=== PATIENT | male | born 1950 | race Caucasian/White ===

== ENCOUNTER 2017-07-11 07:26 | Emergency (ER) | payer MEDICARE ==
[~2017-07-11] VITALS: Ht 177.8 cm; Wt 70.5 kg
[2017-07-11 07:30] VITALS: BP 194/79; PULSE 82; RESP 16; TEMP 97.6; O2SAT 98
[2017-07-11] MEDS ORDERED: PRIL20TA2 (07:40)
[2017-07-11] MEDS ORDERED: PROSTATE PILL (07:40)
[2017-07-11 07:43] VITALS: BP 184/90; PULSE 70; RESP 17; O2SAT 100
--- NOTE | 2017-07-11 07:43 | PD ---
HPI Chief Complaint: Abdominal Pain Time Seen by Provider: 07:40 Travel History International Travel<30 days: No Contact w/Intl Traveler<30days: No Traveled to known affect area: No History of Present Illness HPI one week of n/v/d along with crampy abd pain assoc with bm, pain is nonrad, diffuse, 6/10 and resolves after he completes loose stools. yesterday he ate ice cream sandwich which returned his symptoms.....denies assoc factors such as fever/cough/cp/backpain at this time...denies any alleviating factors, worsened by eating/drinking all: pcn (itchy) pcp pmhx: gerd and prostate problems pshx:denies PFSH Social History Tobacco Use: No Allergies-Medications (Allergen,Severity, Reaction): Coded Allergies: Penicillins (Verified Allergy, Severe, Itching, 07/11/17) Reported Meds & Prescriptions Reported Meds & Active Scripts Active Ultram (Tramadol HCl) 50 Mg Tab 50 Mg PO Q6H PRN Zofran Odt (Ondansetron Odt) 4 Mg Tab 4 Mg SL Q6HR PRN Flagyl (Metronidazole) 500 Mg Tab 500 Mg PO TID 10 Days Cipro (Ciprofloxacin HCl) 500 Mg Tab 500 Mg PO BID 7 Days Reported Prilosec (Omeprazole Magnesium) 20 Mg Tab [Prostate Pill] Review of Systems General / Constitutional: No: Fever Eyes: No: Visual changes HENT: No: Headaches Cardiovascular: No: Chest Pain or Discomfort Respiratory: No: Shortness of Breath Gastrointestinal: Positive: Diarrhea Genitourinary: No: Dysuria Musculoskeletal: No: Pain Skin: No Rash Neurologic: No: Weakness Psychiatric: No: Depression Endocrine: No: Polydipsia Hematologic/Lymphatic: No: Easy Bruising Physical Exam Narrative GENERAL: SKIN: Warm and dry. HEAD: Atraumatic. Normocephalic. EYES: Pupils equal and round. No scleral icterus. No injection or drainage. ENT: No nasal bleeding or discharge. Mucous membranes pink and moist. NECK: Trachea midline. No JVD. CARDIOVASCULAR: Regular rate and rhythm. RESPIRATORY: No accessory muscle use. Clear to auscultation. Breath sounds equal bilaterally. GASTROINTESTINAL: Abdomen soft, non-tender, nondistended. MUSCULOSKELETAL: Extremities without clubbing, cyanosis, or edema. No obvious deformities. NEUROLOGICAL: Awake and alert. No obvious cranial nerve deficits. Motor grossly within normal limits. Five out of 5 muscle strength in the arms and legs. Normal speech. PSYCHIATRIC: Appropriate mood and affect; insight and judgment normal. Data Data Last Documented VS Vital Signs Date Time Temp Pulse Resp B/P (MAP) Pulse Ox O2 Delivery O2 Flow Rate FiO2 07/11/17 09:01 07/11/17 08:54 69 16 100 Room Air 07/11/17 07:30 97.6 Orders Orders Complete Blood Count With Diff (07/11/17 07:47) Comprehensive Metabolic Panel (07/11/17 07:47) Lipase (07/11/17 07:47) Prothrombin Time / Inr (Pt) (07/11/17 07:47) Act Partial Throm Time (Ptt) (07/11/17 07:47) Ct Abd/Pel W/O Iv Contrast (07/11/17 07:47) Iv Access Insert/Monitor (07/11/17 07:47) Ecg Monitoring (07/11/17 07:47) Oximetry (07/11/17 07:47) NPO (07/11/17 07:47) Ondansetron Inj (Zofran Inj) (07/11/17 08:00) Sodium Chlor 0.9% 1000 Ml Inj (Ns 1000 M (07/11/17 07:47) Levofloxacin (Levaquin) (07/11/17 08:45) Metronidazole (Flagyl) (07/11/17 08:45) Sodium Chlor 0.9% 1000 Ml Inj (Ns 1000 M (07/11/17 08:46) Ed Discharge Order (07/11/17 09:03) Labs Laboratory Tests Test 07/11/17 07:50 White Blood Count 12.4 TH/MM3 Red Blood Count 4.51 MIL/MM3 Hemoglobin 13.7 GM/DL Hematocrit 39.9 % Mean Corpuscular Volume 88.6 FL Mean Corpuscular Hemoglobin 30.5 PG Mean Corpuscular Hemoglobin Concent 34.4 % Red Cell Distribution Width 14.4 % Platelet Count 213 TH/MM3 Mean Platelet Volume 9.2 FL Neutrophils (%) (Auto) 80.3 % Lymphocytes (%) (Auto) 10.8 % Monocytes (%) (Auto) 6.6 % Eosinophils (%) (Auto) 1.4 % Basophils (%) (Auto) 0.9 % Neutrophils # (Auto) 10.0 TH/MM3 Lymphocytes # (Auto) 1.3 TH/MM3 Monocytes # (Auto) 0.8 TH/MM3 Eosinophils # (Auto) 0.2 TH/MM3 Basophils # (Auto) 0.1 TH/MM3 CBC Comment DIFF FINAL Differential Comment Prothrombin Time 10.1 SEC Prothromb Time International Ratio 1.0 RATIO Activated Partial Thromboplast Time 25.1 SEC Blood Urea Nitrogen 22 MG/DL Creatinine 2.58 MG/DL Random Glucose 130 MG/DL Total Protein 7.4 GM/DL Albumin 4.1 GM/DL Calcium Level 9.2 MG/DL Alkaline Phosphatase 83 U/L Aspartate Amino Transf (AST/SGOT) 10 U/L Alanine Aminotransferase (ALT/SGPT) 12 U/L Total Bilirubin 0.9 MG/DL Sodium Level 137 MEQ/L Potassium Level 3.6 MEQ/L Chloride Level 109 MEQ/L Carbon Dioxide Level 20.3 MEQ/L Anion Gap 8 MEQ/L Estimat Glomerular Filtration Rate 25 ML/MIN Lipase 183 U/L [facility] Medical Decision Making Medical Screen Exam Complete: Yes Emergency Medical Condition: Yes Medical Record Reviewed: Yes Differential Diagnosis gastroenteritis v pancreatitis v hepatitis v electrolyte abnl v colitis v divertic Narrative Course CT shows: Wall thickening the colon is mainly involving the ascending, proximal transverse, sigmoid and rectum likely colitis. Small hiatal hernia There is no free intraperitoneal air or fluid...according to radiologist read. Patient also has mild leukocytosis with neutrophilia of 80%. Patient's CMP shows normal liver kidney pancreas functions, and normal electrolytes. Since patient is allergic to penicillins patient will be treated with Levaquin and Flagyl p.o. pt tolerated p.o. challenge as well while here in the department. Diagnosis Primary Impression: Acute colitis Additional Impression: renal insufficiency unknown chronicity Patient Instructions: Colitis (ED), General Instructions Scripts Tramadol (Ultram) 50 Mg Tab 50 MG PO Q6H Y for PAIN, #14 TAB 0 Refills Prov: Guicho Cat MD 07/11/17 Ondansetron Odt (Zofran Odt) 4 Mg Tab 4 MG SL Q6HR Y for Nausea/Vomiting, #20 TAB 0 Refills Prov: Guicho Cat MD 07/11/17 Metronidazole (Flagyl) 500 Mg Tab 500 MG PO TID for Infection for 10 Days, #30 TAB 0 Refills Prov: Guicho Cat MD 07/11/17 Ciprofloxacin (Cipro) 500 Mg Tab 500 MG PO BID for Infection for 7 Days, #14 TAB 0 Refills Prov: Guicho Cat MD 07/11/17 Disposition: 01 DISCHARGE HOME Condition: Stable Guicho Cat MD Jul 11, 2017 07:43
[2017-07-11] MEDS ORDERED: SODIUM CHLOR 0.9% 1000 ML INJ 1,000 ML IV SCH ×2 (07:47→08:46)
[2017-07-11 07:50] VITALS: O2SAT 100
[2017-07-11] MEDS ORDERED: ONDANSETRON HCL 4 MG/2 ML VIAL IVP ONE (08:00)
[2017-07-11 08:17] LABS: BASOPHIL # 0.1 TH/MM3 (0-0.2); BASOPHIL % 0.9 % (0.0-2.0); EOSINOPHIL # 0.2 TH/MM3 (0-0.4); EOSINOPHIL % 1.4 % (0.0-4.0); HEMATOCRIT 39.9 % (39.0-51.0); HEMOGLOBIN 13.7 GM/DL (13.0-17.0); LYMPH % 10.8 % (9.0-44.0); LYMPHOCYTE # 1.3 TH/MM3 (1.0-4.8); MEAN CELL VOLUME 88.6 FL (80.0-100.0); MEAN CORPUSCULAR HEMOGLOBIN 30.5 PG (27.0-34.0); MEAN CORPUSCULAR HGB CONC 34.4 % (32.0-36.0); MEAN PLATELET VOLUME 9.2 FL (7.0-11.0); MONO % 6.6 % (0.0-8.0); MONOCYTE # 0.8 TH/MM3 (0-0.9); NEUT % 80.3 % (16.0-70.0); PLATELET COUNT 213 TH/MM3 (150-450); RED BLOOD COUNT 4.51 MIL/MM3 (4.50-5.90); RED CELL DISTRIBUTION WIDTH 14.4 % (11.6-17.2); WHITE BLOOD COUNT 12.4 TH/MM3 (4.0-11.0)
--- NOTE | 2017-07-11 08:23 | RADRPT ---
EXAM DATE/TIME: 07/11/2017 08:13 [facility] COMPARISON: No previous studies available for comparison. INDICATIONS : Abdominal pain, Nausea, Vomiting, Diarrhea ORAL CONTRAST: No oral contrast ingested. RADIATION DOSE: 9.30 CTDIvol (mGy) MEDICAL HISTORY : None SURGICAL HISTORY : None. ENCOUNTER: Initial ACUITY: 1 week PAIN SCALE: 6/10 LOCATION: Bilateral Abdomen TECHNIQUE: Volumetric scanning of the abdomen and pelvis was performed. Using automated exposure control and ad justment of the mA and/or kV according to patient size, radiation dose was kept as low as reasonably achievable to obtain optimal diagnostic quality images. DICOM format image data is available electro nically for review and comparison. FINDINGS: LOWER LUNGS: The visualized lower lungs are clear. LIVER: Homogeneous density without lesion. There is no dilation of the biliary tree. No calcified gallston es. SPLEEN: Normal size without lesion. PANCREAS: Within normal limits. KIDNEYS: Normal in size and shape. There is no mass or hydronephrosis. No obstructing calculus lower pole lef t kidney measures 5 mm. ADRENAL GLANDS: Within normal limits. VASCULAR: There is no aortic aneurysm. BOWEL/MESENTERY: Wall thickening the colon is mainly involving the ascending, proximal transverse, sigmoid and rectum likely colitis. Small hiatal hernia There is no free intraperitoneal air or fluid. ABDOMINAL WALL: Within normal limits. RETROPERITONEUM: There is no lymphadenopathy. BLADDER: No wall thickening or mass. REPRODUCTIVE: Enlarged prostate INGUINAL: There is no lymphadenopathy or hernia. MUSCULOSKELETAL: Within normal limits for patient age. CONCLUSION: 1. Probable colitis. No perforation or abscess. 2. Nonobstructing left-sided renal calculi. 3. Small hiatal hernia. 4. Enlarged prostate Ike Garner MD on July 11, 2017 at 8:19 Board Certified Radiologist. This report was verified electronically.
[2017-07-11 08:25] LABS: PROTHROMBIN TIME - PATIENT 10.1 SEC (9.8-11.6)
[2017-07-11 08:39] LABS: ALBUMIN 4.1 GM/DL (3.4-5.0); ALT (GPT) 12 U/L (12-78); AST (GOT) 10 U/L (15-37); BICARBONATE 20.3 MEQ/L (21.0-32.0); BLOOD UREA NITROGEN 22 MG/DL (7-18); CALCIUM 9.2 MG/DL (8.5-10.1); CHLORIDE 109 MEQ/L (98-107); CREATININE 2.58 MG/DL (0.60-1.30); GLOMERULAR FILTRATION RATE 25 ML/MIN (>89); GLUCOSE,RANDOM 130 MG/DL (74-106); SODIUM (NA) 137 MEQ/L (136-145)
[2017-07-11 08:42] LABS: ALKALINE PHOSPHATASE 83 U/L (45-117); TOTAL BILIRUBIN ADULT 0.9 MG/DL (0.2-1.0); TOTAL PROTEIN 7.4 GM/DL (6.4-8.2)
[2017-07-11] MEDS ORDERED: METR-1 PO (08:42)
[2017-07-11] MEDS ORDERED: CIPR-9 PO (08:42)
[2017-07-11] MEDS ORDERED: ZOFR4TAB3 SL (08:42)
[2017-07-11] MEDS ORDERED: TRAM50 PO (08:42)
[2017-07-11] MEDS ORDERED: LEVOFLOXACIN 500 MG TAB PO ONE (08:45)
[2017-07-11] MEDS ORDERED: metroNIDAZOLE 500 MG TAB PO ONE (08:45)
[2017-07-11 08:54] VITALS: BP 134/79; PULSE 69; RESP 16; O2SAT 100
== END 2017-07-11 09:01 | disposition home or self-care (01) ==
LOC: NEPC 07:26
DX: K52.9 Noninfective gastroenteritis and colitis, unspecified (principal); N28.9 Disorder of kidney and ureter, unspecified; K44.9 Diaphragmatic hernia without obstruction or gangrene
CPT/HCPCS: 74176; 80053; 83690; 85025; 85610; 85730; 96361; 96374; 99284; J2405; J7030